=== PATIENT | female | born 1975 | race American Indian/Alaskan Native ===

== ENCOUNTER 2016-12-03 07:26 | Day surgery (SDC) | payer OTHER ==
[2016-12-03] MEDS ORDERED: NACL 0.9% 500 ML 500 ML IV SCH (08:00)
[2016-12-03 08:19] LABS: Basophils % (Auto) 0.9 % (0.0-1.8); Eosinophils % (Auto) 4.9 % (0.0-4.3); Hematocrit 39.1 % (30.3-42.9); Hemoglobin 13.2 gm/dl (10.1-14.3); Mean Corpuscular HGB Conc 34 % (30-34); Mean Corpuscular Hemoglobin 31 pg (28-32); Mean Corpuscular Volume 91 fl (79-97); Platelet Count 255 K/mm3 (140-440); Red Blood Count 4.32 M/mm3 (3.65-5.03); Red Cell Distribution Width 13.9 % (13.2-15.2); White Blood Count 2.7 K/mm3 (4.5-11.0)
[2016-12-03 08:29] LABS: INR 1.02 (0.87-1.13)
[2016-12-03 08:33] LABS: Anion Gap 17 mmol/L; Blood Urea Nitrogen 11 mg/dL (7-17); Calcium 8.7 mg/dL (8.4-10.2); Carbon Dioxide 26 mmol/L (22-30); Chloride 98.2 mmol/L (98-107); Glucose 98 mg/dL (65-100); Sodium 137 mmol/L (137-145)
[2016-12-03] MEDS ORDERED: ECOTRIN PO ONE (09:30)
[2016-12-03] MEDS ORDERED: HEPARIN 10,000 UNITS/10 ML ONE (10:07)
[2016-12-03] MEDS ORDERED: HEPARIN/NS 5000 UNIT/500ML(CATH LAB) 1,000 ML IR ONE (10:07)
[2016-12-03] MEDS ORDERED: VERSED ONE (10:07)
[2016-12-03] MEDS ORDERED: XYLOCAINE 2% INFILTRATI ONE (10:08)
[2016-12-03] MEDS ORDERED: NITROGLYCERIN SYRINGE 3 ML ONE (10:08)
[2016-12-03] MEDS ORDERED: CALAN ONE ×2 (10:08→10:16)
[2016-12-03] MEDS ORDERED: SUBLIMAZE ONE (10:08)
--- NOTE | 2016-12-03 10:50 | Discharge Summary ---
Short Stay Discharge Plan Activity: advance as tolerated Weight Bearing Status: Full Weight Bearing Diet: low fat, low cholesterol, low salt Wound: keep clean and dry Special Instructions: no heavy lifting (3 days) Follow up with: CARMEN ALEXANDRA MD [Primary Care Provider] - 7 Days CHRISTA ALEXANDRA MD [Staff Physician] - 7 Days
[2016-12-03] MEDS ORDERED: NACL 0.9% 1000 ML 1,000 ML IV SCH (11:00)
[2016-12-03 13:19] VITALS: BP 116/77
--- NOTE | 2016-12-03 15:04 | Cardiac Catherization Report ---
REASON FOR PROCEDURE: The patient underwent outpatient thallium stress test for abnormal EKG, with the finding of left bundle-branch block. Thallium stress test was abnormal with an anterior perfusion defect, prompting a recommendation for cardiac catheterization. PROCEDURE: Left heart catheterization with coronary angiography. DETAILS OF PROCEDURE: The patient was prepped and draped in a sterile fashion after informed consent. The right radial cath site was prepped and draped after a negative Jalil's test. The right radial artery was entered using the Seldinger technique followed by placement of a 5-Swiss hydrophilic sheath. Selective left and right coronary angiography was performed using #3.5 left and #4 right John catheters. The pigtail catheter was used for left ventricular angiography. The catheters were removed, sheath removed using manual compression. The patient was returned to the postprocedure unit in stable condition. There were no complications. FINDINGS: HEMODYNAMICS: Left ventricle end diastolic pressure was 7. Ascending air pressure was 114/68. There was no significant pressure gradient on pullback across the aortic valve. CORONARY ANGIOGRAPHY: The left main coronary artery was angiographically normal. The left anterior descending artery and its diagonal branches were angiographically normal. A large ramus intermedius artery was angiographically normal. The circumflex artery and its obtuse marginal branches were angiographically normal. The right coronary artery was dominant and similarly angiographically normal. The left ventricle was mildly dilated. There was mild left ventricular systolic dysfunction with mild diffuse hypokinesis. Left ventricular ejection fraction was estimated at 40%. CONCLUSION: 1. Angiographically normal coronary arteries. 2. Mild nonischemic cardiomyopathy, left ventricular ejection fraction 40%. RECOMMENDATION: Medical therapy for nonischemic cardiomyopathy. JOB# [id number] CA/NTS
== END 2016-12-03 14:40 | disposition home or self-care (01) ==
LOC: OPU 07:26
PROVIDERS: ATTEND Internal Medicine
DX: I44.7 Left bundle-branch block, unspecified (principal); Z72.89 Other problems related to lifestyle; Z88.0 Allergy status to penicillin; Z83.3 Family history of diabetes mellitus; Z79.01 Long term (current) use of anticoagulants
CPT/HCPCS: 36415; 80048; 85025; 85610; 85730; 93005; 93010; 93458; C1894; J1644; J2250; J3010; J7030; J7040; Q9967

== ENCOUNTER 2020-04-24 07:58 | Day surgery (SDC) | payer OTHER ==
[2020-04-22 12:28] LABS: Hemoglobin 14.2 gm/dl (10.1-14.3); Mean Corpuscular HGB Conc 36 % (30-34); Mean Corpuscular Volume 91 fl (79-97); Platelet Count 290 K/mm3 (140-440); Red Blood Count 4.37 M/mm3 (3.65-5.03); Red Cell Distribution Width 13.6 % (13.2-15.2)
--- NOTE | 2020-04-22 12:55 | Anesthesia Consultation ---
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
--- NOTE | 2020-04-24 07:36 | Short Stay Summary ---
Short Stay Documentation Date of service: 04/24/20 Narrative H&P: 44-year-old -1-0-2 with undesired fertility. The patient is elected to undergo permanent sterilization. She is aware other contraceptive options. - History Principal diagnosis: Unwanted fertility Past Medical History: No medical history Past Surgical History: No surgical history Social history: single - Allergies and Medications Current Medications: Allergies Penicillins Allergy (Verified 04/17/20 15:23) Rash Home Medications Medication Instructions Recorded Confirmed Last Taken Type Citalopram Hydrobromide 40 mg PO DAILY 12/02/16 04/17/20 12/02/16 History [Citalopram HBr] Sacubitril/Valsartan [Entresto 24 1 tab PO BID 08/10/19 04/17/20 Unknown History - 26 mg] carvediloL [Coreg] 3.125 mg PO BID 08/10/19 04/17/20 Unknown History Active Medications Celecoxib (Celebrex) 400 mg PO PREOP NR Stop: 04/24/20 23:59 Gabapentin (Gabapentin) 300 mg PO PREOP NR Stop: 04/24/20 23:59 Lactated Ringer's (Lactated Ringers) 1,000 mls @ 125 mls/hr IV DIRECT CLARE - Physical exam General appearance: no acute distress Integumentary: no rash HEENT: Atraumatic Lungs: Clear to auscultation Breasts: deferred Heart: Regular rate Gastrointestinal: normal Female Genitourinary: deferred Rectal Exam: deferred Extremities: no ischemia Neurological: Normal gait - Brief post op/procedure progress note Date of procedure: 04/24/20 Pre-op diagnosis: Unwanted fertility Post-op diagnosis: same Procedure: Laparoscopy Bilateral salpingectomy Removal of IUD Anesthesia: ALFONSO Surgeon: SULMA BRUNO Estimated blood loss: minimal Pathology: list (IUD) Specimen disposition: to lab Condition: stable - Hospital course Hospital course: The patient was admitted the day of surgery and underwent a laparoscopic bilateral salpingectomy and removal of her IUD. Please see operative note for details of surgery. Her postoperative course was uneventful. - Disposition Condition at discharge: Good Disposition: [id number] TO HOME OR SELFCARE - Discharge Diagnoses (1) Unwanted fertility Status: Acute Short Stay Discharge Plan Activity: no restrictions (Pelvic rest for 1 week) Diet: regular Additional Instructions: Follow-up is not required Follow-up as needed Prescriptions: Ibuprofen [Motrin] 800 mg PO Q8HR PRN #30 tablet PRN Reason: Pain , Severe (7-10) HYDROcodone/APAP 5-325 [[place]ela 5/325] 1 each PO Q6HR PRN #15 tablet PRN Reason: Pain
[~2020-04-24 07:58] MED LIST: ACETAMINOPHEN 500 MG TAB PO ONE; BUPIVACAINE/PF (0.5%) 5 MG/1 ML 30 ML VIAL INFILTRATI ONE; CELECOXIB 200 MG CAP PO NR; GABAPENTIN 300 MG CAP PO NR; LACTATED RINGERS 1,000 ML IV SCH; MAGNESIUM OXIDE 400 MG TAB PO ONE
--- NOTE | 2020-04-24 08:42 | Anesthesia Day of Surgery ---
Anesthesia Day of Surgery - Day of Surgery Patient Examined: Yes Patient H&P Reviewed: Yes Patient is NPO: Yes Beta Blockers: Yes
[2020-04-24] MEDS ORDERED: ACETAMINOPHEN 500 MG TAB ONE (08:53)
[2020-04-24] MEDS ORDERED: MAGNESIUM OXIDE 400 MG TAB PO ONE (08:53)
[2020-04-24] MEDS ORDERED: HYDROmorphone 1 MG/1 ML INJ ONE (09:45)
[2020-04-24] MEDS ORDERED: propofoL 200 MG/20 ML VIAL IV ONE (09:46)
[2020-04-24] MEDS ORDERED: LIDOCAINE MPF (2%) 20 MG/1 ML VIAL 5 ML ONE (09:46)
[2020-04-24] MEDS ORDERED: ROCURONIUM 50 MG/5 ML INJ IV ONE (09:46)
[2020-04-24] MEDS ORDERED: KETOROLAC 30 MG/1 ML INJ ONE (10:40)
[2020-04-24] MEDS ORDERED: ONDANSETRON 4 MG/2 ML INJ ONE (10:40)
[2020-04-24] MEDS ORDERED: GLYCOPYRROLATE 0.4 MG/2 ML INJ ONE (10:41)
[2020-04-24] MEDS ORDERED: NEOSTIGMINE 10MG/10 ML INJ MDV ONE (10:41)
[2020-04-24] MEDS ORDERED: BUPIVACAINE/PF (0.5%) 5 MG/1 ML 30 ML VIAL INFILTRATI ONE (10:50)
--- NOTE | 2020-04-24 10:50 | Operative Report ---
Operative Report Operative Report: Date of surgery: April 24, 2020 Preoperative diagnosis: Unwanted fertility Postoperative diagnosis: Same as above Procedure: Laparoscopy; Bilateral salpingectomy; removal of IUD Surgeon: Millicent Stiles M.D. Anesthesia: General endotracheal anesthesia Estimated blood loss: Minimal Pathology: Bilateral fallopian tubes; IUD Findings: Normal uterus tubes and ovaries; right paratubal cyst Indication: 44-year-old -1-0-2 with undesired fertility. Procedure: The patient was taken to the operating room and given general endotracheal anesthesia without complication. The patient is prepped and draped in a normal sterile fashion. A bivalve speculum was placed in the patient's vagina and a single-tooth tenaculum was placed on the anterior lip of the cervix. A ring forcep was used in order to remove the IUD after the strings were visualized. A uterine acorn manipulator was placed, and the bivalve speculum was then removed. Attention was then turned to the patient's abdomen where a 5 mm infraumbilical skin incision was then made. A Veress needle was placed and peritoneal entry was verified water-filled syringe. Insufflation of the peritoneal cavity was performed with CO2 gas. A 5 mm trocar was placed and the laparoscope was then inserted. The patient was then placed in Trendelenburg. A 7 mm suprapubic skin incision was then made. Under direct visualization a 7 mm trocar was then placed. An additional 5 mm left lateral trocar was also placed. General survey of the patient's abdomen revealed normal uterus, ovaries, tubes. There was evidence of a small paratubal cyst on the right fallopian tube.. The fallopian tube was then followed out to the fimbriated end. The LigaSure device was used in order to coagulate and transect the mesosalpinx. The fallopian tube was excised from the adnexa. The fallopian tube was removed through the 7 mm trocar. This was performed on the contralateral side as well. The trocars were then removed. The pneumoperitoneum was then released. The 5 mm trocar laparoscope was then removed. The skin incisions were then closed with 4-0 Monocryl. The incisions were injected with quarter percent Marcaine. Dressings were applied to the incision. The vaginal instruments were then removed atraumatically. Then successfully extubated and taken to the recovery room. All sponge laps and needle counts were correct x2.
--- NOTE | 2020-04-24 11:44 | Post Anesthesia Evaluation ---
- Post Anesthesia Evaluation Patient Participated: Yes Airway Patent: Yes Stable Respiratory Function: Yes Nausea/Vomiting: No Temp > 96.8F: Yes Pain Manageable: Yes Adequeate Hydration: Yes Anesthesia Complications: No Block Receding Appropriately: Not Applicable Patient on Ventilator: No
[2020-04-24 11:57] VITALS: BP 99/53
== END 2020-04-24 07:59 | disposition home or self-care (01) ==
LOC: OR 07:58
PROVIDERS: ATTEND Obstetrics & Gynecology
DX: Z30.2 Encounter for sterilization (principal); Z30.432 Encounter for removal of intrauterine contraceptive device; Z20.828 Contact with and (suspected) exposure to other viral communicable diseases; N83.8 Other noninflammatory disorders of ovary, fallopian tube and broad ligament; I11.0 Hypertensive heart disease with heart failure; I50.9 Heart failure, unspecified; Z88.0 Allergy status to penicillin; Z79.899 Other long term (current) drug therapy; Z98.890 Other specified postprocedural states; Z72.89 Other problems related to lifestyle
CPT/HCPCS: 36415; 58301; 58670; 84703; 85027; 88300; 88302; J1170; J1885; J2405; J2704; J2710; J7120; U0003